=== PATIENT | male | born 1985 | race Asian ===

== ENCOUNTER 2019-04-14 21:27 | Emergency (ER) | payer SELFPAY ==
--- NOTE | 2019-04-14 21:39 | UC ---
Dental HPI - HPI Summary HPI Summary: 34 yo male presents with dental pain. He tells me that for the last 5-6 days he has had tongue pain and dental pain. His tongue pain has resolved, but his lower right dental pain has persisted. He has noticed a red bump on the gum on his back molar that is tender. Painful to chew on that side. Denies fever, chills, sore throat. - History of Current Complaint Stated Complaint: GINGIVAL PAIN Time Seen by Provider: 04/14/19 21:39 Onset/Duration: Gradual Onset Severity: Moderate Pain Intensity: 5 Pain Scale Used: 0-10 Numeric - Allergies/Home Medications Allergies/Adverse Reactions: Allergies Allergy/AdvReac Type Severity Reaction Status Date / Time No Known Allergies Allergy Verified 04/14/19 21:54 Home Medications: Home Medications Insulin REGULAR(*) 0 units SUBCUT ONCE 04/14/19 [History Confirmed 04/14/19] Metformin HCl [Metformin HCl ER] 500 mg PO DAILY 04/14/19 [History Confirmed ] PMH/Surg Hx/FS Hx/Imm Hx Endocrine History: Diabetes - Surgical History Surgical History: None - Family History Known Family History: Positive: None - Social History Occupation: Employed Full-time Lives: With Family Alcohol Use: Occasionally Substance Use Type: None Smoking Status (MU): Former Smoker Review of Systems All Other Systems Reviewed And Are Negative: No Constitutional: Positive: Negative Skin: Positive: Negative Eyes: Positive: Negative ENT: Positive: Dental Pain Respiratory: Positive: Negative Cardiovascular: Positive: Negative Gastrointestinal: Positive: Negative Neurological: Positive: Negative Psychological: Positive: Negative Physical Exam - Summary Physical Exam Summary: GENERAL: NAD. WDWN. No pain distress. SKIN: No rashes, sores, lesions, or open wounds. HEENT: Head: AT/NC Eyes: EOM intact. Conjunctiva clear without inflammation or discharge. Ears: Hearing grossly normal. TMs intact, no bulging, erythema, or edema. Nose: Nasal mucosa pink and moist. NTTP maxillary and frontal sinus. Throat: Posterior oropharynx without exudates, erythema, or tonsillar enlargement. Uvula midline. NECK: Supple. Nontender. No lymphadenopathy. CHEST: CTAB. No accessory muscle use. Breathing comfortably and in no distress. CV: RRR. Pulses intact. Cap refill <2seconds NEURO: Alert. PSYCH: Age appropriate behavior. Triage Information Reviewed: Yes Vital Signs: Vital Signs (72 hours) 04/14/19 21:54 Temperature 98.6 F Pulse Rate 76 Respiratory 18 Rate Blood Pressure 129/90 (mmHg) O2 Sat by Pulse 99 Oximetry Vital Signs Reviewed: Yes Dental: Positive: Percussion Tenderness @ - Tooth #31, Abscess @ - Tooth #31. Negative: Gross Decay/Caries @, Dental Fracture @, Cellulitis @, Cervical Lymphadenopathy, Bleeding Dental Complaint Course/Dx - Course Course Of Treatment: Tooth #31 abscess - Differential Dx/Diagnosis Provider Diagnosis: Dental abscess Discharge ED - Sign-Out/Discharge Documenting (check all that apply): Patient Departure All imaging exams completed and their final reports reviewed: No Studies - Discharge Plan Condition: Stable Disposition: HOME Prescriptions: Acetaminophen [Tylenol] 650 mg PO TID PRN #30 tablet PRN Reason: Pain - Mild Amoxicillin PO (*) [Amoxicillin 500 MG CAP*] 500 mg PO Q12H #14 cap Chlorhexidine MW 0.12% 473ML* [Peridex Mouth Wash 0.12%] 15 ml MT BID #1 bottle Patient Education Materials: Dental Abscess (ED) Referrals: No Primary Care Phys,NOPCP [Primary Care Provider] - Additional Instructions: If you develop a fever, shortness of breath, chest pain, new or worsening symptoms - please call your PCP or go to the ED immediately. - Billing Disposition and Condition Condition: STABLE Disposition: Home
[2019-04-14] MEDS ORDERED: Ibuprofen TAB* 600 MG PO ONE (21:48)
[2019-04-14] MEDS ORDERED: Amoxicillin PO (*) 500 MG CAP PO ONE (21:48)
[2019-04-14 21:55] VITALS: BP 129/90
== END 2019-04-14 22:30 | disposition home or self-care (01) ==
LOC: UCEAST 21:27
DX: K04.7 Periapical abscess without sinus (principal); E11.9 Type 2 diabetes mellitus without complications; Z79.4 Long term (current) use of insulin; Z87.891 Personal history of nicotine dependence
CPT/HCPCS: 99202; A9270-GY; G0463

== ENCOUNTER 2021-04-10 18:10 | Inpatient (IN) ==
[2021-04-10] MEDS ORDERED: Ondansetron 4 mg VIAL 2 MG/ML 2 ml VIAL IV ONE (18:31)
[2021-04-10] MEDS ORDERED: Lactated Ringers 1000 ml BAG 1,000 ML IV ONE ×2 (18:31→20:11)
[2021-04-10 20:27] LABS: ABS Lymphocytes 0.8 10^3/ul (1.0-4.8); ABS Monocytes 0.5 10^3/ul (0-0.8); ABS Neutrophils 15.7 10^3/ul (1.5-7.7); Hematocrit 51 % (42-52); Hemoglobin 16.5 g/dL (14.0-18.0); Lymphocyte % 4.6 %; Mean Corpuscular HGB Conc 33 g/dL (31-36); Mean Corpuscular Hemoglobin 31 pg (27-31); Mean Corpuscular Volume 95 fL (80-94); Mean Platelet Volume 8.1 fL (7.4-10.4); Platelet Count 370 10^3/uL (150-450); Red Blood Count 5.37 10^6 /uL (4.18-5.48); Red Cell Distribution Width 14 % (10-15)
[2021-04-10 20:27] LABS: Venous Bicarbonate HCO3 7.7 mmol/L (24-28)
[2021-04-10 20:33] LABS: Urine Appearance Clear; Urine Bilirubin Negative (Negative); Urine Blood 1+ (Negative); Urine Color Straw; Urine Glucose 3+(>=500 mg/dL) (Negative); Urine Ketones 2+ (Negative); Urine Nitrite Negative (Negative); Urine Protein 1+(30 mg/dL) (Negative); Urine Specific Gravity 1.026 (1.002-1.030); Urine Urobilinogen Negative (Negative)
[2021-04-10 20:41] LABS: Urine Bacteria Absent (Absent); Urine Red Blood Cell Trace(0-2/hpf) (Absent); Urine White Blood Cell Trace(0-5/hpf) (Absent)
[2021-04-10 20:43] LABS: ALT 16 U/L (7-52); Albumin 4.9 g/dL (3.2-5.2); Albumin/Globulin Ratio 1.3 (1-3); Alkaline Phosphatase 102 U/L (35-149); Blood Urea Nitrogen 23 mg/dL (6-24); Calcium 9.8 mg/dL (8.6-10.3); Chloride 96 mmol/L (101-111); Globulin 3.7 g/dL (2-4); Sodium 135 mmol/L (135-145); Total Protein 8.6 g/dL (6.4-8.9)
[2021-04-10 21:03] LABS: CO2 Carbon Dioxide 7 mmol/L (22-32); Glucose 593 mg/dL (70-100)
[2021-04-10 21:04] LABS: Glucose Confirmatory 610 mg/dL (70-100)
[2021-04-10 21:06] LABS: Anion Gap 32 mmol/L (2-11)
[2021-04-10 21:49] LABS: Potassium Redraw 5.4 mmol/L (3.5-5.0)
[2021-04-10 21:52] LABS: Rapid COVID-19 Molecular Undetected (Undetected)
[2021-04-10] MEDS ORDERED: Ondansetron 4 mg VIAL 2 MG/ML 2 ml VIAL IV PRN (22:43)
[2021-04-10] MEDS: Insulin Infusion 100unit/100mL 100 UNIT/100 ML BAG IV SCH (23:00)
[2021-04-10] MEDS ORDERED: Lactated Ringers 1000 ml BAG 1,000 ML IV SCH ×2 (23:00)
[2021-04-10 23:25] LABS: Magnesium 2.2 mg/dL (1.9-2.7); Phosphorus 6.2 mg/dL (2.5-5.0)
[2021-04-10 23:34] LABS: Glucose Confirmatory 542 mg/dL (70-100)
[2021-04-10 23:47] LABS: Blood Urea Nitrogen 22 mg/dL (6-24); Calcium 7.9 mg/dL (8.6-10.3); Chloride 105 mmol/L (101-111); Glucose 542 mg/dL (70-100); Sodium 135 mmol/L (135-145)
[2021-04-10 23:48] LABS: CO2 Carbon Dioxide < 7 mmol/L (22-32)
[2021-04-11 00:37] LABS: Glucose Confirmatory 514 mg/dL (70-100)
[2021-04-11] MEDS ORDERED: NORMOSOL R PH IV SCH (02:54)
[2021-04-11] MEDS ORDERED: POTASSIUM CHLORIDE IV SCH (02:54)
[2021-04-11 02:56] LABS: PO2 Arterial 120 mmHg (80-100)
[2021-04-11 02:58] LABS: PCO2 Arterial Temp Corrected <20 mmHg (35-45)
[2021-04-11 03:19] LABS: Calcium 8.3 mg/dL (8.6-10.3); Chloride 109 mmol/L (101-111); Potassium 4.5 mmol/L (3.5-5.0); Sodium 143 mmol/L (135-145)
[2021-04-11 03:26] LABS: Blood Urea Nitrogen 22 mg/dL (6-24); CO2 Carbon Dioxide 4 mmol/L (22-32); Glucose 370 mg/dL (70-100); Glucose Confirmatory 370 mg/dL (70-100)
[2021-04-11] MEDS ORDERED: KCL 20 MEQ/100 ML IVPREMIX 20 MEQ/100 ML BAG IV SCH ×2 (04:00→08:00)
[2021-04-11] MEDS ORDERED: NORMOSOL-R pH 7.4 1000 mL BAG 1,000 ML IV SCH ×2 (04:00)
[2021-04-11 04:35] LABS: ABS Lymphocytes 1.7 10^3/ul (1.0-4.8); ABS Monocytes 1.3 10^3/ul (0-0.8); ABS Neutrophils 14.8 10^3/ul (1.5-7.7); Hematocrit 44 % (42-52); Hemoglobin 14.1 g/dL (14.0-18.0); Lymphocyte % 9.5 %; Mean Corpuscular HGB Conc 32 g/dL (31-36); Mean Corpuscular Hemoglobin 31 pg (27-31); Mean Corpuscular Volume 95 fL (80-94); Mean Platelet Volume 7.8 fL (7.4-10.4); Platelet Count 302 10^3/uL (150-450); Red Blood Count 4.57 10^6 /uL (4.18-5.48); Red Cell Distribution Width 13 % (10-15); White Blood Count 17.8 10^3/uL (3.5-10.8)
[2021-04-11 04:38] LABS: ALT 13 U/L (7-52); AST 12 U/L (13-39); Albumin/Globulin Ratio 1.3 (1-3); Alkaline Phosphatase 91 U/L (35-149); Blood Urea Nitrogen 21 mg/dL (6-24); Calcium 8.8 mg/dL (8.6-10.3); Chloride 107 mmol/L (101-111); Glucose 269 mg/dL (70-100); Glucose Confirmatory 269 mg/dL (70-100); Magnesium 2.4 mg/dL (1.9-2.7); Phosphorus 4.5 mg/dL (2.5-5.0); Potassium 4.2 mmol/L (3.5-5.0); Sodium 141 mmol/L (135-145)
[2021-04-11 04:41] LABS: CO2 Carbon Dioxide < 7 mmol/L (22-32)
[2021-04-11] MEDS ORDERED: D5W 20 MEQ KCL 1000 ml BAG 1,000 ML IV SCH (06:00)
[2021-04-11] MEDS: Insulin Infusion 100unit/100mL 100 UNIT/100 ML BAG IV SCH (06:23)
[2021-04-11] MEDS ORDERED: Potassium Chloride LIQUID 20 MEQ/15 ML LIQUID PO ONE (06:52)
[2021-04-11] MEDS ORDERED: D5W 1000 ml BAG 1,000 ML IV SCH (07:00)
[2021-04-11 07:19] LABS: Influenza A Molecular Negative (Negative); Influenza B Molecular Negative (Negative)
[2021-04-11] MEDS ORDERED: Dextrose 50% Syringe 50 ml 25 GM/50 ML SYRINGE IV PUSH PRN ×2 (07:55→18:09)
[2021-04-11] MEDS: D5LR 1000 ml BAG 1,000 ML IV SCH ×3 (08:00→16:06)
[2021-04-11 08:26] LABS: Venous Bicarbonate HCO3 11.1 mmol/L (24-28)
[2021-04-11] MEDS: Pantoprazole VIAL 40 MG VIAL IV SCH (08:28)
[2021-04-11 09:16] LABS: Calcium 7.8 mg/dL (8.6-10.3)
[2021-04-11 09:18] LABS: Troponin I 0.01 ng/mL (<0.03)
[2021-04-11 09:22] LABS: Potassium 6.1 mmol/L (3.5-5.0)
[2021-04-11 12:09] LABS: Calcium 7.8 mg/dL (8.6-10.3)
[2021-04-11] MEDS: KCL 20 MEQ/100 ML IVPREMIX 20 MEQ/100 ML BAG IV SCH ×2 (12:18→14:07)
[2021-04-11] MEDS ORDERED: cefTRIAXone 2 GM ADDV.VIAL 2 GM in NS 0.9% 100 ml BAG 100 ML IV SCH (13:00)
[2021-04-11 13:14] LABS: Myoglobin 28.1 ng/mL (17.4-105.7)
[2021-04-11] MEDS ORDERED: Insulin GLARGINE 100 un/ml 10 ml VIAL SUBCUT ONE ×2 (13:28→20:31)
[2021-04-11 16:28] LABS: Blood Urea Nitrogen 15 mg/dL (6-24); CO2 Carbon Dioxide 17 mmol/L (22-32); Calcium 7.3 mg/dL (8.6-10.3); Glucose 211 mg/dL (70-100); Sodium 137 mmol/L (135-145)
[2021-04-11 16:30] LABS: Anion Gap 7 mmol/L (2-11); Chloride 113 mmol/L (101-111)
[2021-04-11 19:59] LABS: TSH Ultra Thyroid Stim Horm 0.17 mcIU/mL (0.34-5.60)
[2021-04-11] MEDS: Heparin 5000 UNITS/ML 1 mL VIAL SUBCUT SCH (20:12)
[2021-04-11 20:15] LABS: ABS Monocytes 0.7 10^3/ul (0-0.8); ABS Neutrophils 7.7 10^3/ul (1.5-7.7); Eosinophil % 0.1 %; Hematocrit 37 % (42-52); Hemoglobin 12.4 g/dL (14.0-18.0); Mean Corpuscular HGB Conc 33 g/dL (31-36); Mean Corpuscular Hemoglobin 30 pg (27-31); Mean Corpuscular Volume 90 fL (80-94); Mean Platelet Volume 7.6 fL (7.4-10.4); Platelet Count 266 10^3/uL (150-450); Red Blood Count 4.16 10^6 /uL (4.18-5.48); Red Cell Distribution Width 13 % (10-15); White Blood Count 10.4 10^3/uL (3.5-10.8)
[2021-04-11 20:25] LABS: Calcium 7.4 mg/dL (8.6-10.3); Magnesium 1.7 mg/dL (1.9-2.7); Phosphorus 1.4 mg/dL (2.5-5.0); Potassium 3.6 mmol/L (3.5-5.0)
[2021-04-11] MEDS ORDERED: KCL 20 MEQ/100 ML IVPREMIX 20 MEQ/100 ML BAG IV ONE (20:35)
[2021-04-11] MEDS ORDERED: Magnesium Sulfate 2 gm BAG 2 GM/50 ML BAG IVPB ONE (20:35)
[2021-04-11] MEDS ORDERED: Potassium Phosphate IV 15 MMOLE in NS 0.9% 250 ml 250 ML IVPB ONE (21:00)
[2021-04-12 04:38] LABS: ABS Lymphocytes 2.1 10^3/ul (1.0-4.8); ABS Monocytes 0.4 10^3/ul (0-0.8); ABS Neutrophils 4.9 10^3/ul (1.5-7.7); Eosinophil % 0.1 %; Hematocrit 35 % (42-52); Hemoglobin 12.1 g/dL (14.0-18.0); Lymphocyte % 27.8 %; Mean Corpuscular HGB Conc 35 g/dL (31-36); Mean Corpuscular Hemoglobin 31 pg (27-31); Mean Corpuscular Volume 90 fL (80-94); Mean Platelet Volume 7.7 fL (7.4-10.4); Nucleated Red Blood Cells % 0.2; Platelet Count 247 10^3/uL (150-450); Red Blood Count 3.92 10^6 /uL (4.18-5.48); Red Cell Distribution Width 13 % (10-15); White Blood Count 7.5 10^3/uL (3.5-10.8)
[2021-04-12 04:50] LABS: Calcium 6.6 mg/dL (8.6-10.3); Magnesium 1.9 mg/dL (1.9-2.7)
[2021-04-12 04:56] LABS: Potassium 6.1 mmol/L (3.5-5.0)
[2021-04-12 06:49] LABS: Free T3 1.9 pg/mL (2.5-3.9)
[2021-04-12 06:50] LABS: Free T4 1.11 ng/dL (0.61-1.12)
[2021-04-12 07:19] LABS: Calcium 4.8 mg/dL (8.6-10.3); Potassium 2.7 mmol/L (3.5-5.0)
[2021-04-12] MEDS ORDERED: KCL 20 MEQ/100 ML IVPREMIX 20 MEQ/100 ML BAG IV SCH (08:00)
[2021-04-12] MEDS ORDERED: CALCIUM GLUCONATE 1GM/50ML NS 1 GM/50 ML BAG IV ONE (08:01)
[2021-04-12 08:31] LABS: Calcium 7.5 mg/dL (8.6-10.3); Potassium 3.5 mmol/L (3.5-5.0)
[2021-04-12 08:58] LABS: Magnesium 1.4 mg/dL (1.9-2.7)
[2021-04-12] MEDS ORDERED: Potassium Phosphate IV 30 MMOLE in NS 0.9% 250 ml 250 ML IVPB ONE (09:00)
[2021-04-12] MEDS: Heparin 5000 UNITS/ML 1 mL VIAL SUBCUT SCH ×2 (09:00→20:47)
[2021-04-12] MEDS: Pantoprazole VIAL 40 MG VIAL IV SCH (09:00)
[2021-04-12 09:28] LABS: Phosphorus 1.4 mg/dL (2.5-5.0)
[2021-04-12] MEDS ORDERED: Magnesium Sulf 4 GM/100 ML IV 4,000 MG/100 ML BAG IVPB ONE (09:30)
[2021-04-12 11:07] LABS: Calcium 7.1 mg/dL (8.6-10.3); Potassium 3.5 mmol/L (3.5-5.0)
[2021-04-12] MEDS ORDERED: Potassium Phosphate IV 15 MMOLE in NS 0.9% 250 ml 250 ML IVPB ONE (11:20)
[2021-04-12] MEDS: Insulin GLARGINE 100 un/ml 10 ml VIAL SUBCUT SCH (11:40)
[2021-04-12 19:42] LABS: Calcium 7.4 mg/dL (8.6-10.3); Magnesium 2.7 mg/dL (1.9-2.7); Phosphorus 2.5 mg/dL (2.5-5.0); Potassium 3.1 mmol/L (3.5-5.0)
[2021-04-13 06:03] LABS: ABS Lymphocytes 1.6 10^3/ul (1.0-4.8); ABS Monocytes 0.3 10^3/ul (0-0.8); ABS Neutrophils 2.3 10^3/ul (1.5-7.7); Eosinophil % 0.3 %; Hematocrit 37 % (42-52); Hemoglobin 12.7 g/dL (14.0-18.0); Lymphocyte % 38.2 %; Mean Corpuscular HGB Conc 35 g/dL (31-36); Mean Corpuscular Hemoglobin 30 pg (27-31); Mean Corpuscular Volume 88 fL (80-94); Mean Platelet Volume 7.7 fL (7.4-10.4); Nucleated Red Blood Cells % 0.2; Platelet Count 241 10^3/uL (150-450); Red Blood Count 4.19 10^6 /uL (4.18-5.48); Red Cell Distribution Width 13 % (10-15); White Blood Count 4.3 10^3/uL (3.5-10.8)
[2021-04-13 06:27] LABS: Calcium 7.7 mg/dL (8.6-10.3); Magnesium 2.4 mg/dL (1.9-2.7); Phosphorus 2.8 mg/dL (2.5-5.0); Potassium 3.1 mmol/L (3.5-5.0)
[2021-04-13] MEDS ORDERED: Potassium Chloride LIQUID 20 MEQ/15 ML LIQUID PO ONE (06:44)
[2021-04-13] MEDS: KCL 20 MEQ/100 ML IVPREMIX 20 MEQ/100 ML BAG IV SCH ×2 (07:53→10:49)
[2021-04-13] MEDS: Heparin 5000 UNITS/ML 1 mL VIAL SUBCUT SCH (07:54)
[2021-04-13] MEDS: Insulin GLARGINE 100 un/ml 10 ml VIAL SUBCUT SCH (12:41)
[2021-04-13 12:57] VITALS: BP 116/89
== END 2021-04-13 14:50 | disposition home or self-care (01) | DRG 871 ==
LOC: ED 18:10 → SUATTDRO 22:36 → ICU 22:36 → MEDTELE 04-12 20:26
PROVIDERS: ADMIT Internal Medicine; ATTEND Student in an Organized Health Care Education/Training Program